=== PATIENT | male | born 1980 | race Caucasian/White ===

== ENCOUNTER → 2018-08-23 07:33 | Outpatient (CLI) | payer OTHER, SELFPAY ==
--- NOTE | 2018-08-23 | DI.MRI.S_ITS ---
PROCEDURE: MR LUMBAR SPINE WO CON INDICATIONS: Low back pain TECHNIQUE: Noncontrast sagittal T1 spin echo and T2 fast echo, sagittal STIR, axial T1 and T2 fast spin echo through the lumbar spine. In cases with scoliosis, additional coronal T2 fast spin echo may be performed. COMPARISON: None. FINDINGS: Image quality: Excellent. Alignment and Curvature: There is trace retrolisthesis of L3 on L4, L4 on L5 and L5 on S1. Bone Marrow: Marrow is of normal overall signal. Mild reactive endplate changes are present at L4-5, L5-S1, minimal L3-L4. There is a hyperintense T2 focus in the L3 vertebral body demonstrating a subtle/hypointensity on T1. No acute vertebral body compression fractures. Spinal Cord: Conus medullaris terminates at the T12-L1 level. Visualized cord demonstrates normal signal and size. Paraspinous Soft Tissues: No paravertebral masses. Discs: Severe desiccation is present at L5-S1, moderate L3-4 and L4-5. L1-L2: No disc bulge, spinal stenosis or foraminal narrowing. L2-L3: No disc bulge, spinal stenosis or foraminal narrowing. L3-L4: Minimal disc bulge without spinal stenosis. Minimal left foraminal narrowing. L4-L5: Minimal disc bulge without spinal stenosis. Mild to moderate right foraminal narrowing L5-S1: Mild disc bulge including a small left foraminal component. There is no spinal stenosis. Mild to moderate left foraminal narrowing. IMPRESSION: 1. Early degenerative changes most notable at L4-5 and L5-S1. Foraminal narrowing is predominantly secondary to retrolisthesis and early changes of facet arthropathy. Dictated by: Veronica Elder M.D. on 08/23/2018 at 10:28 Approved by: Veronica Elder M.D. on 08/23/2018 at 11:17
== END ==
PROVIDERS: PCP Radiology Diagnostic Radiology; Visit Provider Radiology Diagnostic Radiology
DX: M54.5 Low back pain (principal); M47.816 Spondylosis without myelopathy or radiculopathy, lumbar region; M47.817 Spondylosis without myelopathy or radiculopathy, lumbosacral region; M48.061 Spinal stenosis, lumbar region without neurogenic claudication; M48.07 Spinal stenosis, lumbosacral region
CPT/HCPCS: 72148

== ENCOUNTER → 2020-09-13 07:35 | Outpatient (CLI) | payer OTHER, SELFPAY ==
--- NOTE | 2020-09-13 | DI.RAD.S_ITS ---
PROCEDURE: [place] SHOULDER INJECTION MR/CT LT INDICATIONS: PAIN IN LEFT SHOULDER COMPARISON: None. TECHNIQUE: The indications, alternatives, benefits, risks, and complications of the procedure were explained to the patient. Written informed consent was obtained and placed in the chart. The shoulder was examined fluoroscopically and a site for needle placement chosen for entry into the glenohumeral joint from an anterior approach. The skin was prepped and draped in a sterile fashion, and 1% lidocaine infiltrated from skin down to joint capsule. A spinal needle was inserted into the glenohumeral joint, and a small amount of iodinated contrast media injected to confirm intra-articular placement of the needle tip. This was followed by approximately 12 mL dilute solution of a gadolinium containing MR contrast agent. The needle was removed and a dressing was applied. The patient was given postprocedural instructions and sent to the MR suite for MR imaging. FINDINGS: A single fluoroscopic spot image demonstrates intra-articular location of injected iodinated contrast. IMPRESSION: Successful fluoroscopically guided administration of dilute Gadolinium solution into the shoulder joint for MR arthrogram. Dictated by: Pauline Stevens M.D. on 09/13/2020 at 10:55 Approved by: Pauline Stevens M.D. on 09/13/2020 at 10:56
--- NOTE | 2020-09-13 | DI.MRI.S_ITS ---
PROCEDURE: MR SHOULDER LT W CON INDICATIONS: PAIN IN LEFT SHOULDER TECHNIQUE: After the administration of 12 mL of dilute intra-articular Gadolinium contrast, oblique coronal T1 and T2 spin echo with fat saturation, oblique sagittal T1 spin echo with and without fat saturation, oblique sagittal T2 fast spin echo with fat saturation, axial T1 spin echo with fat saturation through the shoulder. COMPARISON: [facility], , [place] SHOULDER INJECTION MR/CT LT, 09/13/2020, 7:58. FINDINGS: Image quality: Excellent. Rotator cuff: There is focal moderate grade partial intrasubstance tearing of the infraspinatus tendon at the anterior footprint measuring 3 mm in anterior-posterior dimension. While no definite extends into the articular surface is identified, focal perforation is suggested by the presence of mildly T1-hyperintense contrast material within the tear. A small 3 mm hypointense structure is seen adjacent to the tear that is favored to represent torn tendon fibers rather than calcific tendinopathy, as no corresponding calcification is seen on fluoroscopic images from the same day. Findings are superimposed on mild to moderate supraspinatus and infraspinatus tendinosis. The subscapularis and teres minor tendons are intact. There is no significant rotator cuff muscle atrophy. Bones and bursae: There is no acute trabecular bone injury. Small chronic traction cystic changes are seen at the posterosuperior humeral head. No significant glenohumeral degenerative changes are seen. There are [id number] degenerative changes at the acromioclavicular joint. Trace subacromial/subdeltoid fluid may be related to the arthrogram injection or a small bursal effusion, which does not communicate with the glenohumeral joint space. There is mild synovial hypertrophy within the superior subscapularis recess. No intra-articular loose body is seen. Capsule and soft tissues: The labrum and glenohumeral ligaments appear intact. The long head of the biceps tendon demonstrates normal location and morphology. The coracohumeral ligament is of normal thickness. IMPRESSION: 1. Small moderate grade partial intrasubstance tear of the infraspinatus tendon at the anterior footprint measuring 3 mm in anterior-posterior dimension with suspected focal perforation of the articular sided fibers, due to the presence of contrast material within the tear. Mild to moderate supraspinatus and infraspinatus tendinosis. 2. Mild to moderate acromioclavicular joint osteoarthrosis. 3. Intact glenoid labrum. Intact biceps long head tendon. No acute trabecular bone injury. Dictated by: Luciano Bajwa M.D. on 09/13/2020 at 11:28 Approved by: Luciano Bajwa M.D. on 09/13/2020 at 11:42
== END ==
PROVIDERS: PCP Radiology Diagnostic Radiology; Referring Provider Orthopaedic Surgery; Visit Provider Orthopaedic Surgery
DX: M25.512 Pain in left shoulder (principal); M75.112 Incomplete rotator cuff tear or rupture of left shoulder, not specified as traumatic; M19.012 Primary osteoarthritis, left shoulder
CPT/HCPCS: 23350; 73222; 77002

== ENCOUNTER → 2020-12-13 07:48 | Outpatient (CLI) | payer OTHER, SELFPAY ==
--- NOTE | 2020-12-13 | DI.MRI.S_ITS ---
PROCEDURE: MR LUMBAR SPINE WO CON INDICATIONS: Radiculopathy, lumbar region TECHNIQUE: Noncontrast sagittal T1 spin echo and T2 fast echo, sagittal STIR, axial T1 and T2 fast spin echo through the lumbar spine. In cases with scoliosis, additional coronal T2 fast spin echo may be performed. COMPARISON: [facility] [place], [place], XR LUMBAR SPINE WITH OLBIQUES PLUS FLEXION EXTENSION, 12/26/2019, 13:07. Merged With [facility], , MR LUMBAR SPINE WO CON, 08/23/2018, 8:30. FINDINGS: Image quality: Excellent. Alignment and Curvature: 5 lumbar type vertebral bodies are present by plain film. Mild grade 1 retrolisthesis of L3 on L4, L4 on L5, and L5 on S1. Bone Marrow: Marrow is of normal overall signal. No acute vertebral body compression fractures. Mild reactive signal within the endplates adjacent to the L3-L4, L4-L5, and L5-S1 intervertebral discs. Spinal Cord: Conus medullaris terminates at the mid L1 level. Visualized cord demonstrates normal signal and size. Paraspinous Soft Tissues: No paravertebral masses. T12-L1: Normal appearance. L1-L2: Normal appearance. L2-L3: Normal appearance. L3-L4: Mild disc height loss and desiccation. Mild diffuse disc bulge with small superimposed central protrusion. Mild canal stenosis. Mild bilateral foraminal stenosis. No significant change. L4-L5: Moderate disc height loss and desiccation. Mild diffuse disc bulge with superimposed broad-based right paracentral and posterolateral protrusion. Mild canal stenosis. Moderate right and mild left foraminal stenosis. No significant change. L5-S1: Severe disc height loss and desiccation. Mild diffuse disc bulge. Mild bilateral facet hypertrophy. Mild canal stenosis. Mild bilateral foraminal stenosis. No significant change. IMPRESSION: 1. Multilevel degenerative disc and facet disease, as well as ligamentum flavum hypertrophy and epidural lipomatosis. 2. Mild multilevel canal stenosis. 3. Multilevel foraminal stenoses, worst at L4-L5 where there is moderate foraminal stenosis. Dictated by: Juliane Stallworth M.D. on 12/13/2020 at 8:59 Approved by: Juliane Stallworth M.D. on 12/13/2020 at 9:01
== END ==
PROVIDERS: Referring Provider Physical Medicine & Rehabilitation Pain Medicine; Visit Provider Physical Medicine & Rehabilitation Pain Medicine
DX: M54.16 Radiculopathy, lumbar region (principal); M51.36 Other intervertebral disc degeneration, lumbar region; M48.061 Spinal stenosis, lumbar region without neurogenic claudication; M51.37 Other intervertebral disc degeneration, lumbosacral region; M48.07 Spinal stenosis, lumbosacral region; M46.06 Spinal enthesopathy, lumbar region; E88.2 Lipomatosis, not elsewhere classified
CPT/HCPCS: 72148

== ENCOUNTER → 2022-07-04 15:05 | Outpatient (CLI) | payer OTHER, SELFPAY ==
--- NOTE | 2022-07-04 | DI.MRI.S_ITS ---
PROCEDURE: MR LUMBAR SPINE WO CON INDICATIONS: Spondylosis without myelopathy or radiculopathy, lumbar lance TECHNIQUE: Noncontrast sagittal T1 spin echo and T2 fast echo, sagittal STIR, and T2 fast spin echo through the lumbar spine. In cases with scoliosis, additional coronal T2 fast spin echo may be performed. COMPARISON: [facility] [place], [place], XR LUMBAR SPINE WITH OBLIQUES PLUS FLEXION EXTENSION, 06/10/2022, 16:14. FINDINGS: Image quality: Excellent. Alignment and Curvature: There is trace retrolisthesis of L5 on S1. Bone Marrow: Marrow is of normal overall signal. Mild reactive endplate changes are present at L5-S1. No acute vertebral body compression fractures. Spinal Cord: Conus medullaris terminates at the L1 level. Visualized cord demonstrates normal signal and size. Paraspinous Soft Tissues: No paravertebral masses. Discs: Moderate to severe desiccation is present L5-S1, moderate L3-4, L4-5. T12-L1: No disc bulge, spinal stenosis or foraminal narrowing. L1-L2: No disc bulge, spinal stenosis or foraminal narrowing. L2-L3: No disc bulge, spinal stenosis or foraminal narrowing. L3-L4: Mild disc bulge without spinal stenosis. Minimal left foraminal narrowing. L4-L5: Mild disc bulge minimal spinal stenosis. Right paracentral post lateral protrusion is noted. Moderate right foraminal narrowing with facet and ligamentum flavum hypertrophy. L5-S1: Mild disc bulge without spinal stenosis. Mild left foraminal narrowing with facet hypertrophy. IMPRESSION: Early degenerative changes most notable at L4-5 and L5-S1 with [id number] foraminal narrowing secondary to facet arthropathy. Overall appearance is relatively stable compared to prior exam. Dictated by: Veronica Elder M.D. on 07/04/2022 at 16:51 Approved by: Veronica Elder M.D. on 07/04/2022 at 16:54
== END ==
PROVIDERS: Referring Provider Physical Medicine & Rehabilitation Pain Medicine; Visit Provider Physical Medicine & Rehabilitation Pain Medicine
DX: M47.816 Spondylosis without myelopathy or radiculopathy, lumbar region (principal); M47.817 Spondylosis without myelopathy or radiculopathy, lumbosacral region
CPT/HCPCS: 72148